=== PATIENT | male | born 1965 | race African-American/Black ===

== ENCOUNTER 2020-04-07 14:13 | Inpatient (IN) | payer OTHER ==
[2020-04-07 15:08] VITALS: BMI 24.1
[2020-04-07] MEDS ORDERED: ONDANSETRON *ODT* 4 MG TABLET SL PRN (15:36)
[2020-04-07] MEDS ORDERED: NICOTINE POLACRILEX 2 MG GUM BUC PRN (15:36)
[2020-04-07] MEDS ORDERED: MAGNESIUM CITRATE 300 ML BOTTLE PO PRN (15:36)
[2020-04-07] MEDS ORDERED: IBUPROFEN 400 MG TABLET (FP) PO PRN (15:36)
[2020-04-07] MEDS ORDERED: chlordiazePOXIDE HCL 25 MG CAPSULE PO PRN (15:36)
[2020-04-07] MEDS ORDERED: BISMUTH SUBSALICYLATE 524 MG/30 ML UD PO PRN (15:36)
[2020-04-07] MEDS ORDERED: MAGNESIUM HYDROX 2400MG/30ML ORAL SUSPENSION 30 ML CUP PO PRN (15:36)
[2020-04-07] MEDS ORDERED: MENTHOL/PHENOL 1 EACH UD MM PRN (15:36)
[2020-04-07] MEDS ORDERED: ACETAMINOPHEN 325 MG TABLET (FP) PO PRN ×2 (15:36)
[2020-04-07] MEDS ORDERED: MAG HYDROX/AL HYDROX/SIMETH 30 ML UNIT-DOSE CUP PO PRN (15:36)
[2020-04-07] MEDS ORDERED: METHOCARBAMOL 500 MG TABLET PO PRN (15:36)
[2020-04-07] MEDS: chlordiazePOXIDE HCL 25 MG CAPSULE PO SCH ×2 (17:48→22:44)
[2020-04-07] MEDS: hydrOXYzine PAMOATE 25 MG CAPSULE (FP) PO SCH ×2 (17:48→22:43)
[2020-04-07] MEDS: THIAMINE HCL 100 MG TABLET (FP) PO SCH (22:43)
[2020-04-07] MEDS: MELATONIN 5 MG TABLETS PO SCH (22:43)
[2020-04-07] MEDS: BICTEGRAV/EMTRICIT/TENOFOV (BIKTARVY) 50-200-25 MG TABLET PO SCH (22:44)
[2020-04-08] MEDS: hydrOXYzine PAMOATE 25 MG CAPSULE (FP) PO SCH ×5 (05:47→23:02)
[2020-04-08] MEDS: chlordiazePOXIDE HCL 25 MG CAPSULE PO SCH ×4 (05:47→23:02)
[2020-04-08] MEDS: PRENATAL VITAMINS W/ FOLIC ACID TABLET (FP) PO SCH (10:22)
[2020-04-08 11:02] LABS: HEMATOCRIT 39.5 % (35.4-49); MCH 31.5 pg (25.7-33.7); MCHC 32.8 g/dl (32.0-35.9); MEAN CELL VOLUME 95.8 fl (80-96); PLATELET COUNT 246 K/MM3 (134-434); RBC 4.12 M/mm3 (4.00-5.60); RDW 13.8 % (11.9-15.9)
[2020-04-08 11:09] LABS: POTASSIUM 4.6 mmol/L (3.5-5.1)
[2020-04-08 11:13] LABS: CALCIUM 8.9 mg/dL (8.5-10.1)
[2020-04-08 11:14] LABS: ALBUMIN 3.5 g/dl (3.4-5.0); BLOOD UREA NITROGEN 12.2 mg/dL (7-18)
[2020-04-08 11:17] LABS: CREATININE 1.3 mg/dL (0.55-1.3)
[2020-04-08 11:19] LABS: BILIRUBIN,TOTAL 0.7 mg/dL (0.2-1); TOT PROT 6.2 g/dl (6.4-8.2)
[2020-04-08] MEDS: BICTEGRAV/EMTRICIT/TENOFOV (BIKTARVY) 50-200-25 MG TABLET PO SCH (23:02)
[2020-04-08] MEDS: MELATONIN 5 MG TABLETS PO SCH (23:02)
[2020-04-08] MEDS: MIRTAZAPINE 15 MG TABLET (FP) PO SCH (23:02)
[2020-04-08] MEDS: THIAMINE HCL 100 MG TABLET (FP) PO SCH (23:03)
[2020-04-09] MEDS: chlordiazePOXIDE HCL 25 MG CAPSULE PO SCH ×4 (05:30→22:16)
[2020-04-09] MEDS: hydrOXYzine PAMOATE 25 MG CAPSULE (FP) PO SCH ×5 (05:30→22:15)
[2020-04-09] MEDS: PRENATAL VITAMINS W/ FOLIC ACID TABLET (FP) PO SCH (10:17)
[2020-04-09 10:44] LABS: EOS % 3.2 % (0-4.5); HEMATOCRIT 38.4 % (35.4-49); HEMOGLOBIN 12.8 GM/dL (11.7-16.9); LYMPH % 55.3 % (8-40); MCH 31.4 pg (25.7-33.7); MCHC 33.3 g/dl (32.0-35.9); MEAN CELL VOLUME 94.1 fl (80-96); MONO % 16.8 % (3.8-10.2); NEUT % 23.7 % (42.8-82.8); PLATELET COUNT 250 K/MM3 (134-434); RBC 4.08 M/mm3 (4.00-5.60); RDW 13.6 % (11.9-15.9)
[2020-04-09] MEDS: MIRTAZAPINE 15 MG TABLET (FP) PO SCH (22:15)
[2020-04-09] MEDS: THIAMINE HCL 100 MG TABLET (FP) PO SCH (22:15)
[2020-04-09] MEDS: MELATONIN 5 MG TABLETS PO SCH (22:16)
[2020-04-09] MEDS: BICTEGRAV/EMTRICIT/TENOFOV (BIKTARVY) 50-200-25 MG TABLET PO SCH (22:16)
[2020-04-10] MEDS ORDERED: chlordiazePOXIDE HCL 10 MG CAPSULE PO PRN
[2020-04-10] MEDS: hydrOXYzine PAMOATE 25 MG CAPSULE (FP) PO SCH ×2 (06:46→10:20)
[2020-04-10] MEDS: chlordiazePOXIDE HCL 10 MG CAPSULE PO SCH ×2 (06:46→10:20)
[2020-04-10] MEDS: PRENATAL VITAMINS W/ FOLIC ACID TABLET (FP) PO SCH (10:20)
[2020-04-10] MEDS ORDERED: hydrOXYzine PAMOATE 25 MG CAPSULE (FP) PO PRN (10:46)
[2020-04-10 12:41] VITALS: BP 105/70; PULSE 72; TEMP 97.8
[2020-04-11] MEDS ORDERED: chlordiazePOXIDE HCL 10 MG CAPSULE PO SCH (05:00)
[2020-04-12] MEDS ORDERED: chlordiazePOXIDE HCL 10 MG CAPSULE PO ONE (05:00)
== END 2020-04-10 14:15 | disposition left against medical advice (07) | DRG 770 ==
LOC: YASAS 14:13 → Y3N 16:15
PROVIDERS: ADMIT Allergy & Immunology; ATTEND Allergy & Immunology
PROC: HZ2ZZZZ Detoxification Services for Substance Abuse Treatment (ICD-10-PCS; principal; 2020-04-07)
DX: F10.230 Alcohol dependence with withdrawal, uncomplicated (principal); F14.20 Cocaine dependence, uncomplicated; F12.20 Cannabis dependence, uncomplicated; F17.213 Nicotine dependence, cigarettes, with withdrawal; F19.282 Other psychoactive substance dependence with psychoactive substance-induced sleep disorder; F19.24 Other psychoactive substance dependence with psychoactive substance-induced mood disorder; F32.9 Major depressive disorder, single episode, unspecified; Z21 Asymptomatic human immunodeficiency virus [HIV] infection status; D72.819 Decreased white blood cell count, unspecified; K21.9 Gastro-esophageal reflux disease without esophagitis; H91.8X1 Other specified hearing loss, right ear; M54.5 Low back pain; G89.29 Other chronic pain; Z88.2 Allergy status to sulfonamides
CPT/HCPCS: 36415; 80053; 85025; 85027; 86780; C9803; U0003

== ENCOUNTER 2023-08-21 12:04 | Inpatient (IN) | payer OTHER ==
[2023-08-21 12:45] VITALS: BMI 19.6
[2023-08-21] MEDS ORDERED: ONDANSETRON *ODT* 4 MG TABLET SL PRN (13:01)
[2023-08-21] MEDS ORDERED: ACETAMINOPHEN 325 MG TABLET (FP) PO PRN (13:01)
[2023-08-21] MEDS ORDERED: IBUPROFEN 600 MG TABLET (FP) PO PRN (13:01)
[2023-08-21] MEDS ORDERED: hydrOXYzine PAMOATE 25 MG CAPSULE (FP) PO PRN (13:01)
[2023-08-21] MEDS ORDERED: chlordiazePOXIDE HCL 25 MG CAPSULE PO PRN (13:01)
[2023-08-21] MEDS ORDERED: IBUPROFEN 400 MG TABLET (FP) PO PRN (13:01)
[2023-08-21] MEDS ORDERED: BISMUTH SUBSALICYLATE 524 MG/30 ML PO PRN (13:01)
[2023-08-21] MEDS ORDERED: BENZONATATE 200 MG CAPSULE PO PRN (13:01)
[2023-08-21] MEDS ORDERED: NALOXONE HCL 0.4 MG/ML VIAL IM PRN (13:01)
[2023-08-21] MEDS ORDERED: DICYCLOMINE HCL 10 MG CAPSULE PO PRN (13:01)
[2023-08-21] MEDS ORDERED: BENZOCAINE/MENTHOL (CHLORASEPTIC ) LOZENGE MM PRN (13:01)
[2023-08-21] MEDS ORDERED: guaiFENesin 600 MG TABLET.ER (FP) PO PRN (13:01)
[2023-08-21] MEDS ORDERED: LOPERAMIDE HCL 2 MG CAPSULE PO PRN (13:01)
[2023-08-21] MEDS ORDERED: NALOXONE HCL (KLOXXADO) 8 MG SPRAY NS PRN (13:01)
[2023-08-21] MEDS ORDERED: PRENATAL VITAMINS W/ FOLIC ACID TABLET (FP) PO ONE (13:49)
[2023-08-21] MEDS: PRENATAL VITAMINS W/ FOLIC ACID TABLET (FP) PO SCH (13:49)
[2023-08-21] MEDS: chlordiazePOXIDE HCL 25 MG CAPSULE PO SCH (17:47)
[2023-08-21] MEDS: THIAMINE 100 MG TABLET PO SCH (22:19)
[2023-08-21] MEDS: MELATONIN 5 MG TABLETS PO SCH (22:20)
[2023-08-22] MEDS: BICTEGRAV/EMTRICIT/TENOFOV (BIKTARVY) 50-200-25 MG TABLET PO SCH (07:29)
[2023-08-22] MEDS: diazePAM 5 MG TABLET PO SCH (10:44)
[2023-08-22] MEDS: NICOTINE 14 MG/24 HOURS TOPICAL PATCH TD SCH (10:46)
[2023-08-22 11:47] LABS: HEMATOCRIT 34.3 % (35.4-49); HEMOGLOBIN 11.5 GM/dL (11.7-16.9); MCH 31.5 pg (25.7-33.7); MCHC 33.5 g/dl (32.0-35.9); MEAN CELL VOLUME 94.2 fl (80-96); MEAN PLT VOLUME 8.9 fl (7.5-11.1); PLATELET COUNT 217 10^3/uL (134-434); RBC 3.64 M/mm3 (4.00-5.60); RDW 14.2 % (11.9-15.9); WHITE BLOOD COUNT 3.2 K/mm3 (4.0-10.0)
[2023-08-22 11:55] LABS: CHLORIDE 109 mmol/L (98-107); POTASSIUM 4.4 mmol/L (3.5-5.1); SODIUM 139 mmol/L (136-145)
[2023-08-22 12:04] LABS: GLUCOSE,RANDOM 106 mg/dL (74-106)
[2023-08-22 12:05] LABS: ALBUMIN 3.4 g/dl (3.4-5.0); ANION GAP 3 mmol/L (4-13); CO2 27 mmol/L (21-32)
[2023-08-22 12:07] LABS: CREATININE 1.5 mg/dL (0.55-1.3); SGOT/AST 17 U/L (15-37); SGPT/ALT 11 U/L (13-61)
[2023-08-22 12:08] LABS: BILIRUBIN,TOTAL 0.5 mg/dL (0.2-1); BLOOD UREA NITROGEN 23.1 mg/dL (7-18)
[2023-08-22 12:09] LABS: TOT PROT 6.4 g/dl (6.4-8.2)
[2023-08-22 12:10] LABS: ALK PHOS 101 U/L (45-117)
[2023-08-23] MEDS ORDERED: chlordiazePOXIDE HCL 25 MG CAPSULE PO SCH (05:00)
[2023-08-23] MEDS: METHOCARBAMOL 500 MG TABLET PO PRN (10:35)
[2023-08-24] MEDS ORDERED: chlordiazePOXIDE HCL 10 MG CAPSULE PO PRN
[2023-08-24] MEDS ORDERED: chlordiazePOXIDE HCL 10 MG CAPSULE PO SCH (05:00)
[2023-08-24] MEDS: diazePAM 5 MG TABLET PO SCH (05:51)
[2023-08-24] MEDS: MAG HYDROX/AL HYDROX/SIMETH 30 ML UNIT-DOSE CUP PO PRN (05:52)
[2023-08-24] MEDS: diazePAM 5 MG TABLET PO PRN (10:24)
[2023-08-24] MEDS: MAGNESIUM HYDROX 2400MG/30ML ORAL SUSPENSION 30 ML CUP PO PRN (13:41)
[2023-08-24] MEDS: PATIENT'S OWN MEDICATION (NON-FORMULARY) (Omeprazole 20 MG Capsule.Dr) PO SCH (14:44)
[2023-08-24] MEDS: POLYETHYLENE GLYCOL (HEALTHYLAX) 3350 17 GM PACKET PO PRN (22:12)
[2023-08-25] MEDS ORDERED: chlordiazePOXIDE HCL 10 MG CAPSULE PO SCH (05:00)
[2023-08-25] MEDS: diazePAM 5 MG TABLET PO SCH (06:46)
[2023-08-25 08:40] VITALS: BP 115/78; PULSE 78; RESP 16; TEMP 98.4
[2023-08-26] MEDS ORDERED: chlordiazePOXIDE HCL 10 MG CAPSULE PO ONE (05:00)
[2023-08-26] MEDS ORDERED: diazePAM 5 MG TABLET PO ONE (06:00)
== END 2023-08-25 08:50 | disposition home or self-care (01) | DRG 774 ==
LOC: YASAS 12:04 → Y6N 13:16
PROVIDERS: ADMIT Allergy & Immunology; ATTEND Surgery
PROC: HZ2ZZZZ Detoxification Services for Substance Abuse Treatment (ICD-10-PCS; principal; 2023-08-21)
DX: F10.230 Alcohol dependence with withdrawal, uncomplicated (principal); F14.20 Cocaine dependence, uncomplicated; F12.20 Cannabis dependence, uncomplicated; F17.210 Nicotine dependence, cigarettes, uncomplicated; F41.9 Anxiety disorder, unspecified; Z21 Asymptomatic human immunodeficiency virus [HIV] infection status; H91.8X1 Other specified hearing loss, right ear; K21.9 Gastro-esophageal reflux disease without esophagitis; M54.50 Low back pain, unspecified; G89.29 Other chronic pain; Z79.899 Other long term (current) drug therapy; Z88.2 Allergy status to sulfonamides
CPT/HCPCS: 36415; 71046-TC-FY; 80053; 80305; 80307; 82140; 85027; 86780; 93005; 93010

== ENCOUNTER 2023-10-23 09:45 | Inpatient (IN) | payer OTHER ==
[2023-10-23 10:23] VITALS: BMI 21.4
[2023-10-23] MEDS ORDERED: guaiFENesin 600 MG TABLET.ER (FP) PO PRN (10:59)
[2023-10-23] MEDS ORDERED: POLYETHYLENE GLYCOL (HEALTHYLAX) 3350 17 GM PACKET PO PRN (10:59)
[2023-10-23] MEDS ORDERED: NICOTINE POLACRILEX 2 MG GUM BUC PRN (10:59)
[2023-10-23] MEDS ORDERED: ACETAMINOPHEN 325 MG TABLET (FP) PO PRN (10:59)
[2023-10-23] MEDS ORDERED: IBUPROFEN 400 MG TABLET (FP) PO PRN (10:59)
[2023-10-23] MEDS ORDERED: MAG HYDROX/AL HYDROX/SIMETH 30 ML UNIT-DOSE CUP PO PRN (10:59)
[2023-10-23] MEDS ORDERED: BENZONATATE 200 MG CAPSULE PO PRN (10:59)
[2023-10-23] MEDS ORDERED: LOPERAMIDE HCL 2 MG CAPSULE PO PRN (10:59)
[2023-10-23] MEDS ORDERED: NICOTINE POLACRILEX 2 MG LOZENGE BC PRN (10:59)
[2023-10-23] MEDS ORDERED: BENZOCAINE/MENTHOL (CHLORASEPTIC ) LOZENGE MM PRN (10:59)
[2023-10-23] MEDS ORDERED: hydrOXYzine PAMOATE 25 MG CAPSULE (FP) PO PRN (10:59)
[2023-10-23] MEDS ORDERED: IBUPROFEN 600 MG TABLET (FP) PO PRN (10:59)
[2023-10-23] MEDS: THIAMINE 100 MG TABLET PO SCH (22:31)
[2023-10-23] MEDS: MELATONIN 5 MG TABLETS PO SCH (22:32)
[2023-10-24 00:28] LABS: URINE APPEARANCE CLEAR; URINE BILIRUBIN NEGATIVE (NEGATIVE); URINE COLOR YELLOW; URINE GLUCOSE (UA) NEGATIVE (NEGATIVE); URINE KETONE NEGATIVE (NEGATIVE); URINE LEUK ESTERASE NEGATIVE (NEGATIVE); URINE NITRITE NEGATIVE (NEGATIVE); URINE PROTEIN NEGATIVE (NEGATIVE); URINE UROBILINOGEN 0.2 mg/dL (0.2-1.0)
[2023-10-24 06:17] VITALS: BP 133/71; PULSE 60; RESP 16; TEMP 98.6
[2023-10-24] MEDS: BICTEGRAV/EMTRICIT/TENOFOV (BIKTARVY) 50-200-25 MG TABLET PO SCH (07:26)
[2023-10-24 09:30] LABS: POTASSIUM 4.8 mmol/L (3.5-5.1)
[2023-10-24 09:32] LABS: HEMATOCRIT 34.9 % (35.4-49); HEMOGLOBIN 11.8 GM/dL (11.7-16.9); MCH 31.6 pg (25.7-33.7); MCHC 33.8 g/dl (32.0-35.9); MEAN CELL VOLUME 93.7 fl (80-96); MEAN PLT VOLUME 8.1 fl (7.5-11.1); PLATELET COUNT 276 10^3/uL (134-434); RBC 3.72 M/mm3 (4.00-5.60); RDW 13.6 % (11.9-15.9); WHITE BLOOD COUNT 3.9 K/mm3 (4.0-10.0)
[2023-10-24 09:33] LABS: ALBUMIN 3.4 g/dl (3.4-5.0); CALCIUM 9.1 mg/dL (8.5-10.1)
[2023-10-24 09:34] LABS: BLOOD UREA NITROGEN 21.1 mg/dL (7-18)
[2023-10-24 09:37] LABS: CREATININE 1.5 mg/dL (0.55-1.3)
[2023-10-24 09:38] LABS: BILIRUBIN,TOTAL 0.3 mg/dL (0.2-1); TOT PROT 6.3 g/dl (6.4-8.2)
[2023-10-24] MEDS: PRENATAL VITAMINS W/ FOLIC ACID TABLET (FP) PO SCH (10:11)
[2023-10-24] MEDS: PANTOPRAZOLE 20 MG TABLET PO SCH (10:11)
[2023-10-24] MEDS: MAGNESIUM HYDROX 2400MG/30ML ORAL SUSPENSION 30 ML CUP PO PRN (10:12)
== END 2023-10-24 13:25 | disposition left against medical advice (07) | DRG 770 ==
LOC: YASAS 09:45 → Y3NR 11:35 → Y3W 10-24 12:27
PROVIDERS: ADMIT Allergy & Immunology; ATTEND Psychiatry & Neurology Pain Medicine
PROC: HZ42ZZZ Group Counseling for Substance Abuse Treatment, Cognitive-Behavioral (ICD-10-PCS; principal; 2023-10-23)
DX: F10.20 Alcohol dependence, uncomplicated (principal); F14.10 Cocaine abuse, uncomplicated; F12.20 Cannabis dependence, uncomplicated; F17.210 Nicotine dependence, cigarettes, uncomplicated; F41.9 Anxiety disorder, unspecified; F32.A Depression, unspecified; Z21 Asymptomatic human immunodeficiency virus [HIV] infection status; K21.9 Gastro-esophageal reflux disease without esophagitis; H91.90 Unspecified hearing loss, unspecified ear
CPT/HCPCS: 36415; 80053; 80305; 80307; 81003; 85027; 86780; 87811

== ENCOUNTER 2024-02-24 19:08 | Inpatient (IN) | payer OTHER ==
[2024-02-24 19:42] VITALS: BMI 20.9
[2024-02-24] MEDS ORDERED: DICYCLOMINE HCL 10 MG CAPSULE PO PRN (20:20)
[2024-02-24] MEDS ORDERED: NICOTINE POLACRILEX 2 MG GUM BUC PRN (20:20)
[2024-02-24] MEDS ORDERED: guaiFENesin 600 MG TABLET.ER (FP) PO PRN (20:20)
[2024-02-24] MEDS ORDERED: IBUPROFEN 600 MG TABLET (FP) PO PRN (20:20)
[2024-02-24] MEDS ORDERED: MAG HYDROX/AL HYDROX/SIMETH 30 ML UNIT-DOSE CUP PO PRN (20:20)
[2024-02-24] MEDS ORDERED: POLYETHYLENE GLYCOL (HEALTHYLAX) 3350 17 GM PACKET PO PRN (20:20)
[2024-02-24] MEDS ORDERED: IBUPROFEN 400 MG TABLET (FP) PO PRN (20:20)
[2024-02-24] MEDS ORDERED: MAGNESIUM HYDROX 2400MG/30ML ORAL SUSPENSION 30 ML CUP PO PRN (20:20)
[2024-02-24] MEDS ORDERED: LOPERAMIDE HCL 2 MG CAPSULE PO PRN (20:20)
[2024-02-24] MEDS ORDERED: hydrOXYzine PAMOATE 25 MG CAPSULE (FP) PO PRN (20:20)
[2024-02-24] MEDS ORDERED: BENZONATATE 200 MG CAPSULE PO PRN (20:20)
[2024-02-24] MEDS ORDERED: ONDANSETRON *ODT* 4 MG TABLET SL PRN (20:20)
[2024-02-24] MEDS ORDERED: BISMUTH SUBSALICYLATE 524 MG/30 ML PO PRN (20:20)
[2024-02-24] MEDS ORDERED: NALOXONE (NARCAN) HCL 4 MG/0.1 ML SPRAY NS PRN (20:20)
[2024-02-24] MEDS ORDERED: BENZOCAINE/MENTHOL (CHLORASEPTIC ) LOZENGE MM PRN (20:20)
[2024-02-24] MEDS ORDERED: MELATONIN 5 MG TABLETS ONE (21:56)
[2024-02-24] MEDS: THIAMINE 100 MG TABLET PO SCH (21:59)
[2024-02-24] MEDS: MELATONIN 5 MG TABLETS PO SCH (21:59)
[2024-02-25 09:04] LABS: CHLORIDE 105 mmol/L (98-107); SODIUM 139 mmol/L (136-145)
[2024-02-25 09:06] LABS: HEMATOCRIT 36.8 % (35.4-49); HEMOGLOBIN 12.2 GM/dL (11.7-16.9); MCH 30.7 pg (25.7-33.7); MCHC 33.1 g/dl (32.0-35.9); MEAN PLT VOLUME 7.5 fl (7.5-11.1); PLATELET COUNT 275 10^3/uL (134-434); RBC 3.96 M/mm3 (4.00-5.60); RDW 13.3 % (11.9-15.9); WHITE BLOOD COUNT 3.9 K/mm3 (4.0-10.0)
[2024-02-25 09:08] LABS: ALBUMIN 3.7 g/dl (3.4-5.0)
[2024-02-25 09:09] LABS: ANION GAP 4 mmol/L (4-13); BLOOD UREA NITROGEN 23.5 mg/dL (7-18); CO2 30 mmol/L (21-32); GLUCOSE,RANDOM 82 mg/dL (74-106)
[2024-02-25 09:12] LABS: CREATININE 1.7 mg/dL (0.55-1.3); SGOT/AST 29 U/L (15-37); SGPT/ALT 13 U/L (13-61)
[2024-02-25 09:13] LABS: ALK PHOS 92 U/L (45-117); BILIRUBIN,TOTAL 0.3 mg/dL (0.2-1); TOT PROT 6.6 g/dl (6.4-8.2)
[2024-02-25] MEDS: BICTEGRAV/EMTRICIT/TENOFOV (BIKTARVY) 50-200-25 MG TABLET PO SCH (09:37)
[2024-02-25] MEDS: NICOTINE 21 MG/24 HOURS TOPICAL PATCH TD SCH (09:37)
[2024-02-25] MEDS: PRENATAL VITAMINS W/ FOLIC ACID TABLET (FP) PO SCH (09:37)
[2024-02-25] MEDS: FAMOTIDINE 20 MG TABLET PO SCH (10:23)
[2024-02-25] MEDS: METHOCARBAMOL 500 MG TABLET PO PRN (22:43)
[2024-02-25] MEDS: ACETAMINOPHEN 325 MG TABLET (FP) PO PRN (22:43)
[2024-02-25] MEDS: ATORVASTATIN CA 10 MG TABLET (FP) PO SCH (22:43)
[2024-02-25 23:09] VITALS: RESP 16
[2024-02-26 09:01] VITALS: BP 95/63; PULSE 66; TEMP 97.6
[2024-02-26] MEDS: NALOXONE (NYS OPIOID OVERDOSE PROGRAM) 4 MG/0.1 ML SPRAY NS SCH (09:30)
== END 2024-02-26 11:20 | disposition home or self-care (01) | DRG 774 ==
LOC: YASAS 19:08 → Y6N 21:06
PROVIDERS: ADMIT Allergy & Immunology; ATTEND Surgery
PROC: HZ2ZZZZ Detoxification Services for Substance Abuse Treatment (ICD-10-PCS; principal; 2024-02-24)
DX: F10.20 Alcohol dependence, uncomplicated (principal); F14.20 Cocaine dependence, uncomplicated; F12.20 Cannabis dependence, uncomplicated; F17.210 Nicotine dependence, cigarettes, uncomplicated; F19.282 Other psychoactive substance dependence with psychoactive substance-induced sleep disorder; F19.24 Other psychoactive substance dependence with psychoactive substance-induced mood disorder; Z21 Asymptomatic human immunodeficiency virus [HIV] infection status; E78.2 Mixed hyperlipidemia; K21.9 Gastro-esophageal reflux disease without esophagitis; H91.8X1 Other specified hearing loss, right ear
CPT/HCPCS: 36415; 80053; 80305; 80307; 85027; 86780

== ENCOUNTER 2024-03-31 17:48 | Inpatient (IN) | payer OTHER ==
[2024-03-31 18:04] VITALS: BMI 22.8
[2024-03-31] MEDS ORDERED: BENZOCAINE/MENTHOL (CHLORASEPTIC ) LOZENGE MM PRN (18:16)
[2024-03-31] MEDS ORDERED: BISACODYL 5 MG TABLET.DR (FP) PO PRN (18:16)
[2024-03-31] MEDS ORDERED: POLYETHYLENE GLYCOL (HEALTHYLAX) 3350 17 GM PACKET PO PRN (18:16)
[2024-03-31] MEDS ORDERED: MAGNESIUM HYDROX 2400MG/30ML ORAL SUSPENSION 30 ML CUP PO PRN (18:16)
[2024-03-31] MEDS ORDERED: BENZONATATE 200 MG CAPSULE PO PRN (18:16)
[2024-03-31] MEDS ORDERED: DICYCLOMINE HCL 10 MG CAPSULE PO PRN (18:16)
[2024-03-31] MEDS ORDERED: guaiFENesin 600 MG TABLET.ER (FP) PO PRN (18:16)
[2024-03-31] MEDS ORDERED: ONDANSETRON *ODT* 4 MG TABLET SL PRN (18:16)
[2024-03-31] MEDS ORDERED: NICOTINE POLACRILEX 2 MG LOZENGE BC PRN (18:16)
[2024-03-31] MEDS ORDERED: MAG HYDROX/AL HYDROX/SIMETH 30 ML UNIT-DOSE CUP PO PRN (18:16)
[2024-03-31] MEDS ORDERED: METHOCARBAMOL 500 MG TABLET PO PRN (18:16)
[2024-03-31] MEDS ORDERED: LOPERAMIDE HCL 2 MG CAPSULE PO PRN (18:16)
[2024-03-31] MEDS ORDERED: IBUPROFEN 600 MG TABLET (FP) PO PRN (18:16)
[2024-03-31] MEDS ORDERED: IBUPROFEN 400 MG TABLET (FP) PO PRN (18:16)
[2024-03-31] MEDS ORDERED: BISMUTH SUBSALICYLATE 524 MG/30 ML PO PRN (18:16)
[2024-03-31] MEDS: ACETAMINOPHEN 325 MG TABLET (FP) PO PRN (19:33)
[2024-03-31] MEDS: hydrOXYzine PAMOATE 25 MG CAPSULE (FP) PO PRN (19:33)
[2024-03-31] MEDS: MELATONIN 5 MG TABLETS PO SCH (22:27)
[2024-03-31] MEDS: DOCUSATE SODIUM 100 MG CAPSULE (FP) PO SCH (22:27)
[2024-03-31] MEDS: THIAMINE 100 MG TABLET PO SCH (22:27)
[2024-04-01] MEDS ORDERED: chlordiazePOXIDE HCL 25 MG CAPSULE PO PRN (09:29)
[2024-04-01] MEDS: PRENATAL VITAMINS W/ FOLIC ACID TABLET (FP) PO SCH (10:39)
[2024-04-01] MEDS: chlordiazePOXIDE HCL 25 MG CAPSULE PO SCH (10:43)
[2024-04-01 12:07] LABS: HEMOGLOBIN 11.6 GM/dL (11.7-16.9); MCHC 33.1 g/dl (32.0-35.9); MEAN CELL VOLUME 93.7 fl (80-96); MEAN PLT VOLUME 7.8 fl (7.5-11.1); PLATELET COUNT 256 10^3/uL (134-434); RBC 3.73 M/mm3 (4.00-5.60); RDW 14.3 % (11.9-15.9); WHITE BLOOD COUNT 2.7 K/mm3 (4.0-10.0)
[2024-04-01 12:27] LABS: CHLORIDE 111 mmol/L (98-107); SODIUM 143 mmol/L (136-145)
[2024-04-01] MEDS: BICTEGRAV/EMTRICIT/TENOFOV (BIKTARVY) 50-200-25 MG TABLET PO SCH (12:33)
[2024-04-01 12:35] LABS: BLOOD UREA NITROGEN 10.9 mg/dL (7-18); CALCIUM 8.9 mg/dL (8.5-10.1); CO2 29 mmol/L (21-32); GLUCOSE,RANDOM 91 mg/dL (74-106)
[2024-04-01 12:36] LABS: ALBUMIN 3.2 g/dl (3.4-5.0); ANION GAP 2 mmol/L (4-13)
[2024-04-01 12:38] LABS: CREATININE 1.5 mg/dL (0.55-1.3); SGOT/AST 19 U/L (15-37)
[2024-04-01 12:40] LABS: ALK PHOS 79 U/L (45-117); BILIRUBIN,TOTAL 0.3 mg/dL (0.2-1); SGPT/ALT 11 U/L (13-61); TOT PROT 5.9 g/dl (6.4-8.2)
[2024-04-01] MEDS: FAMOTIDINE 20 MG TABLET PO SCH (17:02)
[2024-04-01] MEDS: ATORVASTATIN CA 10 MG TABLET (FP) PO SCH (22:18)
[2024-04-02] MEDS: chlordiazePOXIDE HCL 10 MG CAPSULE PO SCH (06:00)
[2024-04-03] MEDS: chlordiazePOXIDE HCL 10 MG CAPSULE PO SCH (05:52)
[2024-04-03] MEDS: NICOTINE POLACRILEX 2 MG GUM BUC PRN (12:46)
[2024-04-03] MEDS: NALOXONE (NYS OPIOID OVERDOSE PROGRAM) 4 MG/0.1 ML SPRAY NS SCH (12:48)
[2024-04-03 16:56] VITALS: TEMP 98.2
[2024-04-03] MEDS: ROSUVASTATIN CA 10 MG TABLET PO SCH (23:09)
[2024-04-04] MEDS: chlordiazePOXIDE HCL 10 MG CAPSULE PO ONE (06:10)
[2024-04-04 06:38] VITALS: BP 113/71; PULSE 62; RESP 16
== END 2024-04-04 11:47 | disposition home or self-care (01) | DRG 774 ==
LOC: YASAS 17:48 → Y6N 18:47
PROVIDERS: ADMIT Allergy & Immunology; ATTEND Allergy & Immunology
PROC: HZ2ZZZZ Detoxification Services for Substance Abuse Treatment (ICD-10-PCS; principal; 2024-03-31)
DX: F10.230 Alcohol dependence with withdrawal, uncomplicated (principal); F14.20 Cocaine dependence, uncomplicated; F12.20 Cannabis dependence, uncomplicated; F17.210 Nicotine dependence, cigarettes, uncomplicated; F41.9 Anxiety disorder, unspecified; F32.A Depression, unspecified; Z21 Asymptomatic human immunodeficiency virus [HIV] infection status; E78.00 Pure hypercholesterolemia, unspecified; K21.9 Gastro-esophageal reflux disease without esophagitis; Z79.899 Other long term (current) drug therapy; Z86.11 Personal history of tuberculosis; Z88.2 Allergy status to sulfonamides
CPT/HCPCS: 36415; 80053; 80305; 80307; 85027

== ENCOUNTER 2024-06-12 21:46 | Inpatient (IN) | payer OTHER ==
[2024-06-12 22:21] VITALS: BMI 23.0
[2024-06-12] MEDS ORDERED: BENZONATATE 200 MG CAPSULE PO PRN (22:23)
[2024-06-12] MEDS ORDERED: DICYCLOMINE HCL 10 MG CAPSULE PO PRN (22:23)
[2024-06-12] MEDS ORDERED: MAG HYDROX/AL HYDROX/SIMETH 30 ML UNIT-DOSE CUP PO PRN (22:23)
[2024-06-12] MEDS ORDERED: NICOTINE POLACRILEX 2 MG GUM BUC PRN (22:23)
[2024-06-12] MEDS ORDERED: MAGNESIUM HYDROX 2400MG/30ML ORAL SUSPENSION 30 ML CUP PO PRN (22:23)
[2024-06-12] MEDS ORDERED: guaiFENesin 600 MG TABLET.ER (FP) PO PRN (22:23)
[2024-06-12] MEDS ORDERED: POLYETHYLENE GLYCOL (HEALTHYLAX) 3350 17 GM PACKET PO PRN (22:23)
[2024-06-12] MEDS ORDERED: NALOXONE (NARCAN) HCL 4 MG/0.1 ML SPRAY NS PRN (22:23)
[2024-06-12] MEDS ORDERED: ONDANSETRON *ODT* 4 MG TABLET SL PRN (22:23)
[2024-06-12] MEDS ORDERED: NICOTINE POLACRILEX 2 MG LOZENGE BC PRN (22:23)
[2024-06-12] MEDS ORDERED: LOPERAMIDE HCL 2 MG CAPSULE PO PRN (22:23)
[2024-06-12] MEDS ORDERED: hydrOXYzine PAMOATE 25 MG CAPSULE (FP) PO PRN (22:23)
[2024-06-12] MEDS ORDERED: IBUPROFEN 600 MG TABLET (FP) PO PRN (22:23)
[2024-06-12] MEDS ORDERED: METHOCARBAMOL 500 MG TABLET PO PRN (22:23)
[2024-06-12] MEDS ORDERED: ACETAMINOPHEN 325 MG TABLET (FP) PO PRN (22:23)
[2024-06-12] MEDS ORDERED: IBUPROFEN 400 MG TABLET (FP) PO PRN (22:23)
[2024-06-12] MEDS ORDERED: BENZOCAINE/MENTHOL (CHLORASEPTIC ) LOZENGE MM PRN (22:23)
[2024-06-12] MEDS ORDERED: BISMUTH SUBSALICYLATE 524 MG/30 ML PO PRN (22:23)
[2024-06-13 09:19] VITALS: RESP 16
[2024-06-13] MEDS: PRENATAL VITAMINS W/ FOLIC ACID TABLET (FP) PO SCH (10:38)
[2024-06-13] MEDS: FAMOTIDINE 20 MG TABLET PO SCH (10:39)
[2024-06-13] MEDS: BICTEGRAV/EMTRICIT/TENOFOV (BIKTARVY) 50-200-25 MG TABLET PO SCH (10:39)
[2024-06-13] MEDS: ROSUVASTATIN CA 10 MG TABLET PO SCH (10:55)
[2024-06-13] MEDS: NALTREXONE HCL 50 MG TABLET PO ONE (11:39)
[2024-06-13 13:39] VITALS: BP 103/68; PULSE 62; TEMP 97.6
[2024-06-13] MEDS: MELATONIN 5 MG TABLETS PO SCH (22:40)
[2024-06-13] MEDS: THIAMINE 100 MG TABLET PO SCH (22:40)
[2024-06-14] MEDS ORDERED: NALTREXONE HCL 50 MG TABLET PO SCH (10:00)
== END 2024-06-14 08:45 | disposition home or self-care (01) | DRG 774 ==
LOC: YASAS 21:46 → Y6N 22:51
PROVIDERS: ADMIT Allergy & Immunology; ATTEND Allergy & Immunology
PROC: HZ2ZZZZ Detoxification Services for Substance Abuse Treatment (ICD-10-PCS; principal; 2024-06-12)
DX: F10.20 Alcohol dependence, uncomplicated (principal); F14.20 Cocaine dependence, uncomplicated; F12.20 Cannabis dependence, uncomplicated; F17.210 Nicotine dependence, cigarettes, uncomplicated; F41.9 Anxiety disorder, unspecified; F32.A Depression, unspecified; Z21 Asymptomatic human immunodeficiency virus [HIV] infection status; H91.91 Unspecified hearing loss, right ear; E78.1 Pure hyperglyceridemia; K21.9 Gastro-esophageal reflux disease without esophagitis
CPT/HCPCS: 80305; 80307

== ENCOUNTER 2024-11-17 21:13 | Inpatient (IN) | payer OTHER ==
[2024-11-17 21:25] VITALS: BMI 21.7
[2024-11-17] MEDS ORDERED: NICOTINE POLACRILEX 2 MG LOZENGE BC PRN (22:15)
[2024-11-17] MEDS ORDERED: ONDANSETRON *ODT* 4 MG TABLET SL PRN (22:15)
[2024-11-17] MEDS ORDERED: hydrOXYzine PAMOATE 25 MG CAPSULE (FP) PO PRN (22:15)
[2024-11-17] MEDS ORDERED: METHOCARBAMOL 500 MG TABLET PO PRN (22:15)
[2024-11-17] MEDS ORDERED: POLYETHYLENE GLYCOL (HEALTHYLAX) 3350 17 GM PACKET PO PRN (22:15)
[2024-11-17] MEDS ORDERED: DICYCLOMINE HCL 10 MG CAPSULE PO PRN (22:15)
[2024-11-17] MEDS ORDERED: IBUPROFEN 600 MG TABLET (FP) PO PRN (22:15)
[2024-11-17] MEDS ORDERED: BENZONATATE 200 MG CAPSULE PO PRN (22:15)
[2024-11-17] MEDS ORDERED: MAG HYDROX/AL HYDROX/SIMETH 30 ML UNIT-DOSE CUP PO PRN (22:15)
[2024-11-17] MEDS ORDERED: BENZOCAINE/MENTHOL (CHLORASEPTIC ) LOZENGE MM PRN (22:15)
[2024-11-17] MEDS ORDERED: BISMUTH SUBSALICYLATE 524 MG/30 ML PO PRN (22:15)
[2024-11-17] MEDS ORDERED: ACETAMINOPHEN 325 MG TABLET (FP) PO PRN (22:15)
[2024-11-17] MEDS ORDERED: LOPERAMIDE HCL 2 MG CAPSULE PO PRN (22:15)
[2024-11-17] MEDS ORDERED: NICOTINE POLACRILEX 2 MG GUM BUC PRN (22:15)
[2024-11-17] MEDS ORDERED: IBUPROFEN 400 MG TABLET (FP) PO PRN (22:15)
[2024-11-17] MEDS ORDERED: NALOXONE (NARCAN) HCL 4 MG/0.1 ML SPRAY NS PRN (22:15)
[2024-11-17] MEDS ORDERED: guaiFENesin 600 MG TABLET.ER (FP) PO PRN (22:15)
[2024-11-18 06:30] VITALS: RESP 16
[2024-11-18 09:48] LABS: MCHC 32.0 g/dl (32.3-36.5); MEAN CELL VOLUME 100.3 fl (79.0-92.2); MEAN PLT VOLUME 10.1 fl (9.4-12.4); RDW 12.5 % (12.2-16.1)
[2024-11-18 10:28] LABS: GLUCOSE,RANDOM 100 mg/dL (74-106); TOT PROT 6.3 g/dl (6.4-8.2)
[2024-11-18 10:29] LABS: CO2 27 mmol/L (21-32)
[2024-11-18 10:31] LABS: ALK PHOS 76 U/L (40-150)
[2024-11-18] MEDS: FAMOTIDINE 20 MG TABLET PO SCH (10:32)
[2024-11-18] MEDS: NALTREXONE HCL 50 MG TABLET PO SCH (10:32)
[2024-11-18] MEDS: BICTEGRAV/EMTRICIT/TENOFOV (BIKTARVY) 50-200-25 MG TABLET PO SCH (10:32)
[2024-11-18] MEDS: PRENATAL VITAMINS W/ FOLIC ACID TABLET (FP) PO SCH (10:32)
[2024-11-18] MEDS: MAGNESIUM HYDROX 2400MG/30ML ORAL SUSPENSION 30 ML CUP PO PRN (10:32)
[2024-11-18 10:33] LABS: SGOT/AST 28 U/L (5-34); SGPT/ALT 6 U/L (0-55)
[2024-11-18 10:34] LABS: CREATININE 1.76 mg/dL (0.55-1.3)
[2024-11-18] MEDS ORDERED: IBUPROFEN 600 MG TABLET (FP) PO PRN (12:04)
[2024-11-18] MEDS ORDERED: IBUPROFEN 400 MG TABLET (FP) PO PRN (12:04)
[2024-11-18] MEDS ORDERED: MAGNESIUM HYDROX 2400MG/30ML ORAL SUSPENSION 30 ML CUP PO PRN (12:04)
[2024-11-18] MEDS ORDERED: DICYCLOMINE HCL 10 MG CAPSULE PO PRN (12:04)
[2024-11-18] MEDS ORDERED: BENZOCAINE/MENTHOL (CHLORASEPTIC ) LOZENGE MM PRN (12:04)
[2024-11-18] MEDS ORDERED: LOPERAMIDE HCL 2 MG CAPSULE PO PRN (12:04)
[2024-11-18] MEDS ORDERED: BISMUTH SUBSALICYLATE 524 MG/30 ML PO PRN (12:04)
[2024-11-18] MEDS ORDERED: NALOXONE (NARCAN) HCL 4 MG/0.1 ML SPRAY NS PRN (12:04)
[2024-11-18] MEDS ORDERED: METHOCARBAMOL 500 MG TABLET PO PRN (12:04)
[2024-11-18] MEDS ORDERED: MAG HYDROX/AL HYDROX/SIMETH 30 ML UNIT-DOSE CUP PO PRN (12:04)
[2024-11-18] MEDS ORDERED: ONDANSETRON *ODT* 4 MG TABLET SL PRN (12:04)
[2024-11-18] MEDS ORDERED: ACETAMINOPHEN 325 MG TABLET (FP) PO PRN (12:04)
[2024-11-18] MEDS ORDERED: hydrOXYzine PAMOATE 25 MG CAPSULE (FP) PO PRN (12:04)
[2024-11-18] MEDS ORDERED: BENZONATATE 200 MG CAPSULE PO PRN (12:04)
[2024-11-18] MEDS ORDERED: guaiFENesin 600 MG TABLET.ER (FP) PO PRN (12:04)
[2024-11-18] MEDS ORDERED: MELATONIN 5 MG TABLETS PO SCH (22:00)
[2024-11-18] MEDS ORDERED: THIAMINE 100 MG TABLET PO SCH (22:00)
[2024-11-18] MEDS: ROSUVASTATIN CA 10 MG TABLET PO SCH (23:00)
[2024-11-18] MEDS: THIAMINE 100 MG TABLET PO SCH (23:00)
[2024-11-18] MEDS: MIRTAZAPINE 15 MG TABLET (FP) PO SCH (23:00)
[2024-11-18] MEDS: MELATONIN 5 MG TABLETS PO SCH (23:00)
[2024-11-19] MEDS: BICTEGRAV/EMTRICIT/TENOFOV (BIKTARVY) 50-200-25 MG TABLET PO SCH (07:17)
[2024-11-19 09:10] VITALS: PULSE 60
[2024-11-19] MEDS: PRENATAL VITAMINS W/ FOLIC ACID TABLET (FP) PO SCH (10:18)
[2024-11-19] MEDS: POLYETHYLENE GLYCOL (HEALTHYLAX) 3350 17 GM PACKET PO PRN (10:22)
[2024-11-19 12:43] VITALS: BP 99/61; TEMP 98
== END 2024-11-19 12:58 | disposition left against medical advice (07) | DRG 770 ==
LOC: YASAS 21:13 → Y6N 22:48
PROVIDERS: ADMIT Neuromusculoskeletal Medicine & OMM; ATTEND Allergy & Immunology
PROC: HZ2ZZZZ Detoxification Services for Substance Abuse Treatment (ICD-10-PCS; principal; 2024-11-17)
DX: F10.230 Alcohol dependence with withdrawal, uncomplicated (principal); F14.10 Cocaine abuse, uncomplicated; F12.20 Cannabis dependence, uncomplicated; F17.210 Nicotine dependence, cigarettes, uncomplicated; F19.282 Other psychoactive substance dependence with psychoactive substance-induced sleep disorder; F19.280 Other psychoactive substance dependence with psychoactive substance-induced anxiety disorder; Z21 Asymptomatic human immunodeficiency virus [HIV] infection status; H91.90 Unspecified hearing loss, unspecified ear; E78.2 Mixed hyperlipidemia; K21.9 Gastro-esophageal reflux disease without esophagitis; Z88.2 Allergy status to sulfonamides
CPT/HCPCS: 36415; 80053; 80307; 85027; 86780; 93005; 93010